=== PATIENT | male | born 1980 | race African-American/Black ===

== ENCOUNTER 2019-02-05 05:18 | Emergency (ER) | payer MEDICAID ==
[~2019-02-05] VITALS: Ht 172.7 cm; Wt 122.5 kg
[~2019-02-05 05:18] MED LIST: BENADRYL ALLERG25 MG PO; CLEOCIN HCL150 MG PO; FLEXERIL PO; NOHOMEMEDICATIONS; NORCO 5-325 TA1 EACH PO; VICODIN 5-5001 EACH PO; [UNRECOGNIZED DRUG - REMARK]
[2019-02-05] MEDS ORDERED: INVEGA (05:27)
[2019-02-05] MEDS ORDERED: KLONOPIN (05:28)
[2019-02-05] MEDS ORDERED: BUSPIRONE (05:28)
[2019-02-05] MEDS ORDERED: FLUOXETINE (05:28)
[2019-02-05 05:50] LABS: URINE BILIRUBIN NEGATIVE (Negative); URINE BLOOD TRACE (Negative); URINE CLARITY CLEAR; URINE COLOR YELLOW; URINE GLUCOSE-RANDOM NEGATIVE (Negative); URINE KETONES NEGATIVE (Negative); URINE LEUKOCYTES-REFLEX NEGATIVE (Negative); URINE NITRITE-REFLEX NEGATIVE (Negative); URINE PROTEIN NEGATIVE (Negative); URINE UROBILINOGEN 0.2 E.U./dl (0.2-1.0)
[2019-02-05 05:52] LABS: ABSOLUTE BASOPHILS 0.1 thou/uL (0.0-0.2); ABSOLUTE EOSINOPHILS 0.2 thou/uL (0.0-0.7); ABSOLUTE LYMPHOCYTES 3.8 thou/uL (0.8-5.3); ABSOLUTE MONOCYTES 0.6 thou/uL (0.0-1.2); ABSOLUTE NEUTROPHILS 4.3 thou/uL (1.6-8.1); EOSINOPHILS 2.1 %; HEMATOCRIT 42.2 % (42.0-52.0); HEMOGLOBIN 14.5 gm/dL (14.0-18.0); MCH 29.4 pg (26.0-34.0); MCHC 34.3 g/dL (28.0-37.0); MCV 85.9 fL (80.0-100.0); MONOCYTES 6.9 %; MPV 7.4 fl. (7.2-11.1); NUCLEATED RBCS 0 /100WBC; PLATELET COUNT* 320 thou/uL (150-400); RBC 4.92 mil/uL (4.50-6.00); RDW-CV 15.2 % (10.5-14.5); WBC 9.1 thou/uL (4.0-11.0)
[2019-02-05 06:04] LABS: PROTIME 10.2 Seconds (9.20-11.50)
[2019-02-05 06:10] LABS: ANION GAP 11 mmol/L (7-16); BUN 11 mg/dL (7-18); CALCIUM 9.2 mg/dL (8.5-10.1); CHLORIDE 101 mmol/L (98-107); CO2 25 mmol/L (21-32); CREATININE 0.9 mg/dL (0.6-1.3); GLUCOSE 117 mg/dL (70-99); SODIUM 137 mmol/L (136-145); TROPONIN-I LEVEL <0.06 ng/mL (<0.06)
[2019-02-05 06:11] LABS: ALBUMIN 3.8 g/dL (3.4-5.0); ALKALINE PHOSPHATASE 94 U/L (46-116); LIPASE 138 U/L (73-393); NT-PRO BRAIN NAT PEPTIDE 20 pg/mL (<300); SGOT 31 U/L (15-37); SGPT 73 U/L (30-65); TOTAL BILIRUBIN 0.3 mg/dL (<0.1-1.0); TOTAL PROTEIN 7.5 g/dL (6.4-8.2)
[2019-02-05] MEDS ORDERED: LISINOPRIL-HCT1 EACH PO (09:41)
[2019-02-05] MEDS ORDERED: ULTRAM 50MG TAB50 MG PO (09:41)
[2019-02-05 09:49] VITALS: BP 116/83
--- NOTE | 2019-02-05 11:59 | EKG ---
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: [place] : 1980 Requested By: Jacey Mina Order Number: [id number] MD: Barry Meza Measurements Intervals [place] Rate: 93 P: 21 [place]: 159 QRS: 75 QRSD: 86 T: 1 QT: 389 QTc: 484 Interpretive Statements Sinus rhythm with pvc early repolarization Borderline prolonged QT interval Compared to ECG 03/22/2017 18:04:35 Sinus tachycardia no longer present Electronically Signed On 02-05-2019 11:59:24 CDT by Barry Meza [email or web address] <ELECTRONICALLY SIGNED> By: Barry Meza MD, [facility] 02/05/19 1159 8 Barry Meza MD, FACC /EPI
--- NOTE | 2019-02-06 13:47 | EKG ---
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 02/06/19 1347 0825 4 Barry Meza MD, FACC /EPI
== END 2019-02-05 09:49 | disposition home or self-care (01) ==
LOC: M.ERS 05:18
PROVIDERS: Emergency Medicine
DX: R07.89 Other chest pain (principal); F17.210 Nicotine dependence, cigarettes, uncomplicated; F32.9 Major depressive disorder, single episode, unspecified; F20.9 Schizophrenia, unspecified; Z88.8 Allergy status to other drugs, medicaments and biological substances; Z88.0 Allergy status to penicillin